=== PATIENT | female | born 1970 | race Caucasian/White ===

== ENCOUNTER 2022-04-03 08:58 | Outpatient (CLI) | payer MEDICAID, SELFPAY ==
[2022-04-03 14:37] LABS: Chloride* 107 mmol/L (96-114)
[2022-04-03 14:38] LABS: Potassium* 4.6 mmol/L (3.6-5.1); Sodium* 141 mmol/L (135-149)
[2022-04-03 14:40] LABS: Creatinine* 0.8 mg/dL (0.5-1.5); Estimated Glomerular Filt Rate 88 ml/min
[2022-04-03 14:41] LABS: Cholesterol* 173 mg/dL (90-199); HDL Cholesterol* 76 mg/dL (>=50); LDL Cholesterol Calculated 85 mg/dL (<100); Triglycerides* 58 mg/dL (40-149)
[2022-04-03 14:41] LABS: Blood Urea Nitrogen* 12 mg/dL (7-30); Calcium* 9.1 mg/dL (8.4-10.6); Carbon Dioxide* 27 mmol/L (20-32); Glucose* 85 mg/dL (60-115)
== END 2022-04-03 08:59 | disposition home or self-care (01) ==
LOC: LKVREF 09:00
PROVIDERS: PCP Emergency Medicine; Visit Provider Emergency Medicine
DX: Z01.419 Encounter for gynecological examination (general) (routine) without abnormal findings (principal); E03.9 Hypothyroidism, unspecified; Z13.6 Encounter for screening for cardiovascular disorders
CPT/HCPCS: 80048; 80061; 84443

== ENCOUNTER 2022-07-16 14:23 | Outpatient (CLI) | payer MEDICAID, SELFPAY | END 2022-07-16 14:24 | disposition home or self-care (01) | LOC: NFLDREF 07-17 01:29 | PROVIDERS: PCP Emergency Medicine; Referring Provider Emergency Medicine; Visit Provider Emergency Medicine | DX: E03.9 Hypothyroidism, unspecified (principal) | CPT/HCPCS: 84443 ==

== ENCOUNTER 2023-09-02 14:57 | Outpatient (CLI) | payer MEDICAID, SELFPAY | END 2023-09-02 14:58 | disposition home or self-care (01) | PROVIDERS: PCP Emergency Medicine; Visit Provider Family Medicine | DX: E03.9 Hypothyroidism, unspecified (principal); C50.812 Malignant neoplasm of overlapping sites of left female breast; Z13.228 Encounter for screening for other metabolic disorders | CPT/HCPCS: 80048; 84439; 84443 ==

== ENCOUNTER 2024-01-20 16:15 | Outpatient (CLI) | payer MEDICAID, SELFPAY | END 2024-01-20 16:16 | disposition home or self-care (01) | LOC: LKVREF 16:16 | PROVIDERS: PCP Emergency Medicine; Visit Provider Emergency Medicine | DX: Z01.818 Encounter for other preprocedural examination (principal) | CPT/HCPCS: 80048 ==

== ENCOUNTER 2025-01-24 09:55 | Outpatient (CLI) | payer MEDICAID, SELFPAY | END 2025-01-24 09:56 | disposition home or self-care (01) | LOC: NFLDREF 01-26 17:20 | PROVIDERS: PCP Physician Assistant Medical; Referring Provider Physician Assistant Medical; Visit Provider Physician Assistant Medical | DX: M85.9 Disorder of bone density and structure, unspecified (principal); Z00.00 Encounter for general adult medical examination without abnormal findings | CPT/HCPCS: 80053; 80061; 82306; 84443; 86703; 86803 ==

== ENCOUNTER 2025-01-25 16:32 | Outpatient (CLI) | payer MEDICAID, SELFPAY ==
[2025-01-25 22:59] LABS: Chlamydia DNA Amplified* NOT DETECTED (No Detected); GC DNA Amplified* NOT DETECTED (No Detected)
[2025-01-27 23:04] LABS: HPV Source Cervix
[2025-01-30 19:49] LABS: Pap Test Digital Imaging Done
== END 2025-01-25 16:33 | disposition home or self-care (01) ==
PROVIDERS: PCP Physician Assistant Medical; Visit Provider Physician Assistant Medical
DX: Z00.00 Encounter for general adult medical examination without abnormal findings (principal)
CPT/HCPCS: 87491; 87591; 87624; 87625; 88141; 88142; 88175